=== PATIENT | male | born 1990 | race Caucasian/White ===

== ENCOUNTER 2022-02-14 08:48 | Outpatient (CLI) | payer BC ==
[2022-02-14] MEDS ORDERED: Magnevist 469MG/ML 20 ML VIAL ONE (10:23)
== END 2022-02-14 08:49 | disposition home or self-care (01) ==
LOC: CSHMRI 08:48
PROVIDERS: ATTEND Registered Nurse
DX: H53.9 Unspecified visual disturbance (principal); H53.47 Heteronymous bilateral field defects
CPT/HCPCS: 70553; A9579